=== PATIENT | female | born 1965 | race Caucasian/White ===

== ENCOUNTER 2017-11-16 17:29 | Emergency (ER) | payer MEDICARE, MEDICAID ==
[~2017-11-16] VITALS: Ht 154.9 cm; Wt 75.9 kg
[2017-11-16 17:33] VITALS: BP 156/84
== END 2017-11-16 19:49 | disposition home or self-care (01) ==
LOC: ER 17:29
DX: S70.02XA Contusion of left hip, initial encounter (principal); E11.9 Type 2 diabetes mellitus without complications; Z88.0 Allergy status to penicillin; Z90.710 Acquired absence of both cervix and uterus; W10.9XXA Fall (on) (from) unspecified stairs and steps, initial encounter; Y93.89 Activity, other specified; Y92.89 Other specified places as the place of occurrence of the external cause; Y99.9 Unspecified external cause status
CPT/HCPCS: 73502; 99284

== ENCOUNTER 2018-03-30 10:39 | Inpatient (IN) | payer MEDICARE, MEDICAID | END 2018-04-04 15:01 | disposition home or self-care (01) | LOC: ER 10:39 → SUR 3N 03-31 05:30 → ED HOLD 13:26 → SUR 3N 03-31 12:10 | PROC: 0J9C3ZX Drainage of Pelvic Region Subcutaneous Tissue and Fascia, Percutaneous Approach, Diagnostic (ICD-10-PCS; principal; ~2018-03-30) | DX: K57.20 Diverticulitis of large intestine with perforation and abscess without bleeding (principal); E87.1 Hypo-osmolality and hyponatremia; E11.9 Type 2 diabetes mellitus without complications ==

== ENCOUNTER 2018-04-17 09:32 | Emergency (ER) | payer MEDICARE, MEDICAID ==
[~2018-04-17] VITALS: Ht 154.9 cm; Wt 69.7 kg
[~2018-04-17 09:32] MED LIST: ACET500C5 PO; ARIP5TAB4 PO; ATEN25TA PO; BUSP15TA3 PO; CALC-965 PO; CLON-527 PO; DOCU-261 PO; GABA-532 PO; IBUP-1985 PO; LEVO750T46 PO; LISI10TA4 PO; LOVA20TA2 PO; MAGN400C PO; MYCOL15CR TOP; OMEP20CA10 PO; OXCA600T37 PO; SERT100T10 PO; ZIPR40CA14 PO; ZIPR80CA10 PO
[2018-04-17 09:34] VITALS: BP 119/77
--- NOTE | 2018-04-17 10:51 | NUR ---
cleaned patient's abrasion to right eyebrow. patient tolerated well.
[2018-04-20] MEDS ORDERED: WALKERFR (15:29)
== END 2018-04-17 11:11 | disposition home or self-care (01) ==
LOC: ER 09:33
DX: S00.11XA Contusion of right eyelid and periocular area, initial encounter (principal); E78.00 Pure hypercholesterolemia, unspecified; I10 Essential (primary) hypertension; E11.9 Type 2 diabetes mellitus without complications; N28.9 Disorder of kidney and ureter, unspecified; Z90.710 Acquired absence of both cervix and uterus; Z98.890 Other specified postprocedural states; Z88.0 Allergy status to penicillin; Z79.899 Other long term (current) drug therapy; W19.XXXA Unspecified fall, initial encounter; Y93.89 Activity, other specified; Y92.89 Other specified places as the place of occurrence of the external cause; Y99.8 Other external cause status
CPT/HCPCS: 99284

== ENCOUNTER → 2018-04-20 | Emergency (ER) | payer MEDICARE, MEDICAID ==
[~2018-04-20] VITALS: Ht 152.4 cm; Wt 68.2 kg
[~2018-04-20] MED LIST changes: +WALKERFR
[2018-04-20 13:44] VITALS: BP 109/77
== END | disposition home or self-care (01) ==
LOC: ER 13:34
DX: S93.492A Sprain of other ligament of left ankle, initial encounter (principal); S00.83XA Contusion of other part of head, initial encounter; S00.81XA Abrasion of other part of head, initial encounter; E78.00 Pure hypercholesterolemia, unspecified; I10 Essential (primary) hypertension; E11.9 Type 2 diabetes mellitus without complications; F41.9 Anxiety disorder, unspecified; F32.9 Major depressive disorder, single episode, unspecified; Z88.0 Allergy status to penicillin; Z79.899 Other long term (current) drug therapy; Z90.710 Acquired absence of both cervix and uterus; W01.198A Fall on same level from slipping, tripping and stumbling with subsequent striking against other object, initial encounter; Y93.89 Activity, other specified; Y92.89 Other specified places as the place of occurrence of the external cause; Y99.8 Other external cause status
CPT/HCPCS: 73610; 99284

== ENCOUNTER 2018-06-04 11:17 | Emergency (ER) | payer MEDICARE, MEDICAID ==
[~2018-06-04] VITALS: Ht 152.4 cm; Wt 65.8 kg
[2018-06-04] MEDS ORDERED: HYDR25SU32 RC (11:57)
[2018-06-04] MEDS ORDERED: hydrocortisone acetate 25mg rectal suppository RC PRN (12:00)
[2018-06-04 12:22] VITALS: BP 134/55
== END 2018-06-04 12:25 | disposition home or self-care (01) ==
LOC: ER 11:17
DX: K64.9 Unspecified hemorrhoids (principal); I10 Essential (primary) hypertension; E78.00 Pure hypercholesterolemia, unspecified; F17.200 Nicotine dependence, unspecified, uncomplicated; E11.9 Type 2 diabetes mellitus without complications; Z90.710 Acquired absence of both cervix and uterus; Z88.0 Allergy status to penicillin
CPT/HCPCS: 99284

== ENCOUNTER 2019-03-12 09:46 | Emergency (ER) | payer MEDICARE, MEDICAID ==
[~2019-03-12] VITALS: Ht 152.4 cm; Wt 65.0 kg
[~2019-03-12 09:46] MED LIST changes: +ARIP5TAB14 PO; -ARIP5TAB4 PO; +HYDR25SU32 RC; +OMEP-297 PO; -OMEP20CA10 PO
[2019-03-12] MEDS ORDERED: normal saline 1000ML IV soln IVB ONE (10:15)
[2019-03-12] MEDS ORDERED: ondansetron/PF 4mg/2ml inj IV ONE (10:15)
[2019-03-12] MEDS ORDERED: morphine 4 MG/ML inj SYRINge IV PRN (10:15)
--- NOTE | 2019-03-12 10:16 | NUR ---
PT'S CAREGIVER COMES INTO THE ROOM TO TALK TO THE PROVIDER.
--- NOTE | 2019-03-12 11:17 | NUR ---
PA INFORMED DIFFICULTY DRAWING BLOOD FROM PATIENT
[2019-03-12 11:53] LABS: BASOPHILS % (AUTO) 0.2 % (0-1); EOSINOPHILS % (AUTO) 0.1 % (0-6); HEMATOCRIT 26.8 % (35.0-45.0); HEMOGLOBIN 9.2 g/dl (12.0-16.0); LYMPHOCYTES # (AUTO) 0.6 X10'3 (1.1-4.8); LYMPHOCYTES % (AUTO) 8.2 % (21-51); MEAN CORPUSCULAR HEMOGLOBIN 31.8 PG (27.0-31.0); MEAN CORPUSCULAR HGB CONC 34.2 g/dL (33.0-36.5); MEAN CORPUSCULAR VOLUME 92.9 FL (78-98); MEAN PLATELET VOLUME 8.5 FL (7.4-10.4); MONOCYTES # (AUTO) 0.8 X10'3 (0-0.9); MONOCYTES % (AUTO) 10.4 % (2-12); NEUTROPHILS # (AUTO) 6.2 X10'3 (1.8-7.7); NEUTROPHILS % (AUTO) 81.1 % (42-75); PLATELET COUNT 130 X10'3 (140-440); RED BLOOD COUNT 2.88 X10'6 (4.20-5.60); RED CELL DISTRIBUTION WIDTH 14.9 % (11.5-14.5); WHITE BLOOD COUNT 7.6 X10'3 (4.5-11.0)
[2019-03-12 12:02] LABS: ALANINE AMINOTRANSFERASE 38 U/L (12-78); ALBUMIN 3.1 G/DL (3.4-5.0); ALBUMIN/GLOBULIN RATIO 0.6 (1.1-1.5); ALKALINE PHOSPHATASE 163 IU/L (46-116); ANION GAP 9 (8-16); ASPARTATE AMINO TRANSFERASE 87 U/L (10-37); BILIRUBIN,TOTAL 0.5 MG/DL (0.1-1.0); BLOOD UREA NITROGEN 46 MG/DL (7-18); BUN/CREATININE RATIO 23.6 (6.6-38.0); CALCIUM 9.4 MG/DL (8.5-10.1); CHLORIDE 99 MMOL/L (99-107); CREATININE 1.95 MG/DL (0.40-0.90); GLUCOSE 115 MG/DL (70-104); POTASSIUM 4.3 MMOL/L (3.5-5.1); SODIUM 137 MMOL/L (135-145); TOTAL CARBON DIOXIDE 28.8 MMOL/L (24-32); eGFR 27 ML/MIN
[2019-03-12] MEDS ORDERED: CIPR-230 PO (12:12)
[2019-03-12 12:15] VITALS: BP 101/49
--- NOTE | 2019-03-12 12:40 | NUR ---
PA AWARE NO URINE SENT, PATIENT REFUSED STRAIGHT CATH
[2019-03-23] MEDS ORDERED: ARIP10TA15 PO (15:38)
[2019-03-23] MEDS ORDERED: CLON-514 PO (15:42)
[2019-03-23] MEDS ORDERED: FERR324T8 PO (15:44)
[2019-03-23] MEDS ORDERED: ZIPR40CA2 PO (15:50)
[2019-03-23] MEDS ORDERED: ALLO100T PO (15:57)
[2019-03-23] MEDS ORDERED: LOPE-144 PO (16:00)
== END 2019-03-12 12:39 | disposition home or self-care (01) ==
LOC: ER 09:47
DX: K63.2 Fistula of intestine (principal); R10.30 Lower abdominal pain, unspecified; R19.7 Diarrhea, unspecified; E78.00 Pure hypercholesterolemia, unspecified; I10 Essential (primary) hypertension; E11.9 Type 2 diabetes mellitus without complications; Z90.710 Acquired absence of both cervix and uterus; Z88.0 Allergy status to penicillin; Z79.899 Other long term (current) drug therapy
CPT/HCPCS: 36415; 74176; 80053; 85025; 96361; 96374; 96375; 99284; J2270; J2405; J7030

== ENCOUNTER 2019-03-15 15:34 | Emergency (ER) | payer MEDICARE, MEDICAID ==
[~2019-03-15] VITALS: Ht 152.4 cm; Wt 67.3 kg
[~2019-03-15 15:34] MED LIST changes: +CIPR-230 PO
[2019-03-15 16:00] VITALS: BP 91/76
== END 2019-03-15 16:50 | disposition left against medical advice (07) ==
LOC: ER 15:35
DX: K62.5 Hemorrhage of anus and rectum (principal); Z53.21 Procedure and treatment not carried out due to patient leaving prior to being seen by health care provider

== ENCOUNTER 2019-04-10 09:52 | Observation (INO) | payer MEDICARE, MEDICAID ==
[~2019-04-10] VITALS: Ht 160 cm; Wt 67.3 kg
[~2019-04-10 09:52] MED LIST changes: +ALLO100T PO; +ARIP10TA15 PO; -CIPR-230 PO; +CLON-514 PO; -DOCU-261 PO; +FERR324T8 PO; -LEVO750T46 PO; +LOPE-144 PO; -MAGN400C PO; -MYCOL15CR TOP; -OMEP-297 PO; +OMEP20CA15 PO; -OXCA600T37 PO; -WALKERFR; -ZIPR40CA14 PO; +ZIPR40CA2 PO
[2019-04-10] MEDS ORDERED: normal saline 1000ML IV soln IVB ONE (10:20)
[2019-04-10 10:52] LABS: BASOPHILS % (AUTO) 0.4 % (0-1); EOSINOPHILS # (AUTO) 0.2 X10'3 (0-0.9); EOSINOPHILS % (AUTO) 2.1 % (0-6); HEMATOCRIT 24.5 % (35.0-45.0); HEMOGLOBIN 8.5 g/dl (12.0-16.0); LYMPHOCYTES # (AUTO) 1.1 X10'3 (1.1-4.8); LYMPHOCYTES % (AUTO) 10.7 % (21-51); MEAN CORPUSCULAR HEMOGLOBIN 31.5 PG (27.0-31.0); MEAN CORPUSCULAR HGB CONC 34.6 g/dL (33.0-36.5); MEAN PLATELET VOLUME 8.4 FL (7.4-10.4); MONOCYTES # (AUTO) 0.7 X10'3 (0-0.9); MONOCYTES % (AUTO) 6.7 % (2-12); NEUTROPHILS % (AUTO) 80.1 % (42-75); PLATELET COUNT 251 X10'3 (140-440); RED BLOOD COUNT 2.69 X10'6 (4.20-5.60); RED CELL DISTRIBUTION WIDTH 15.1 % (11.5-14.5)
[2019-04-10 11:28] LABS: GLUCOSE 178 MG/DL (70-104); TOTAL CARBON DIOXIDE 23.6 MMOL/L (24-32)
[2019-04-10 11:29] LABS: ALANINE AMINOTRANSFERASE 38 U/L (12-78); ALBUMIN 2.7 G/DL (3.4-5.0); ALBUMIN/GLOBULIN RATIO 0.7 (1.1-1.5); ALKALINE PHOSPHATASE 82 IU/L (46-116); ANION GAP 9 (8-16); ASPARTATE AMINO TRANSFERASE 42 U/L (10-37); BILIRUBIN,TOTAL 0.2 MG/DL (0.1-1.0); BLOOD UREA NITROGEN 47 MG/DL (7-18); BUN/CREATININE RATIO 22.7 (6.6-38.0); CALCIUM 8.8 MG/DL (8.5-10.1); CHLORIDE 102 MMOL/L (99-107); CREATININE 2.07 MG/DL (0.40-0.90); POTASSIUM 4.9 MMOL/L (3.5-5.1); SODIUM 135 MMOL/L (135-145); TOTAL PROTEIN 6.8 G/DL (6.4-8.2); eGFR 25 ML/MIN
[2019-04-10 11:33] LABS: CLARITY,URINE SLIGHTLY CLOUDY (Clear); COLOR,URINE STRAW (Yellow); GLUCOSE, URINE NEGATIVE (Neg); KETONES,URINE NEGATIVE (Neg); LEUKOCYTE ESTERASE ,URINE LARGE (Neg); NITRITES, URINE NEGATIVE (Neg); OCCULT BLOOD,URINE MODERATE (Neg); PH,URINE 7.5 (4.8-8.0); PROTEIN,URINE 30 mg/dl (Neg); UROBILINOGEN,URINE 0.2 E.U/dL (0.2-1.0)
[2019-04-10 11:36] LABS: UA COLLECTION TYPE VOIDED
[2019-04-10 11:43] LABS: WBC,URINE 50-100 /HPF (0-4)
[2019-04-10 11:44] LABS: BACTERIA,URINE 3+ /HPF (Neg); MUCUS STRANDS NONE SEEN /LPF (Neg); SQUAMOUS EPITHELIAL CELL,UR MODERATE /LPF (FEW); WBC CLUMPS,URINE FEW /HPF (NEGATIVE); YEAST FEW /HPF (NEGATIVE)
[2019-04-10] MEDS ORDERED: CefTRIAXone 2gm/D5W 50ml 50 ML IV ONE (11:45)
[2019-04-10] MEDS ORDERED: NICO-731 TOP (12:57)
[2019-04-10] MEDS ORDERED: MYC15CR TOP (12:57)
--- NOTE | 2019-04-10 13:15 | NUR ---
Asked to consult on pt. Pt has just been dc'd from here last tuesday to her normal residence (residential long term) and did well day of dc and tuesday but started declining after that. The home feels that pt would benefit from short term rehab. Pt had been accepted at [facility] however they felt she would recover quicker in her own setting so she was dc'd home instead. I called [facility] and spoke w/ Dg and DEZ Pearson. They have some concerns over pt's psych meds so I faxed them the ER notes which includes a current med list. I confirmed w/ the caregiver at bedside that pt sees Carol Park MD for her medical needs and Dr. Jeffries for her psych care/meds. Per caregiver pt is seen [id number] w/ Dr. Mauricio. Shortly after that I was contacted by the ER that pt is actually in acute renal failure and will be admitted for some fluids. She should be stable for tx to [facility] in a day or so. Notifed [facility] of pt's admit, they will continue to follow pt. Continue to monitor.
[2019-04-10] MEDS ORDERED: mag hydrox/Alum hydrox/simeth 30ml oral suspension PO PRN (13:30)
[2019-04-10] MEDS ORDERED: ondansetron/PF 4mg/2ml inj IV PRN (13:30)
[2019-04-10] MEDS ORDERED: acetaminophen 325mg tablet PO PRN (13:30)
[2019-04-10] MEDS ORDERED: magnesium hydroxide 30ml (MOM) UD suspension PO PRN (13:30)
--- NOTE | 2019-04-10 16:19 | NUR ---
Patient given juice and heart health diet ordered
[2019-04-10] MEDS: normal saline 1000ml 1,000 ML IV SCH (16:23)
[2019-04-10] MEDS ORDERED: non-formulary drug (Acetaminophen (Mapap) 1 CAP) PO PRN (16:25)
[2019-04-10] MEDS ORDERED: loperamide 2mg capsule PO PRN (16:45)
[2019-04-10] MEDS: ziprasidone 20mg capsule PO SCH (17:55)
[2019-04-10] MEDS: calcium carbonate/vitamin D3 tablet PO SCH ×2 (17:55→21:30)
[2019-04-10 19:35] VITALS: BP 157/91
--- NOTE | 2019-04-10 19:35 | NUR ---
PATIENT ADMITTED TO ROOM 353 FROM ER FOR TAY AND UTI. PLACED COMFORTABLE IN BED. VITAL SIGNS TAKEN AND RECORDED.
[2019-04-10] MEDS ORDERED: FERROUS FUMARATE PO SCH (20:00)
[2019-04-10] MEDS ORDERED: aripiprazole 5mg tablet PO SCH (21:00)
[2019-04-10] MEDS ORDERED: ziprasidone 20mg capsule PO SCH (21:00)
[2019-04-10] MEDS: busPIRone 15mg tablet PO SCH (21:30)
[2019-04-10] MEDS: gabapentin 300mg capsule PO SCH (21:30)
[2019-04-10] MEDS: heparin, porcine 5000 units/ml vial SQ SCH (21:40)
[2019-04-10] MEDS: NYSTATIN CREAM - 30GM TUBE TP SCH (21:40)
[2019-04-11] VITALS: BP 100/55
[2019-04-11] MEDS: normal saline 1000ml 1,000 ML IV SCH ×2 (01:32→11:59)
[2019-04-11 06:23] LABS: BASOPHILS % (AUTO) 0.8 % (0-1); EOSINOPHILS # (AUTO) 0.2 X10'3 (0-0.9); EOSINOPHILS % (AUTO) 4.3 % (0-6); HEMATOCRIT 25.8 % (35.0-45.0); HEMOGLOBIN 8.8 g/dl (12.0-16.0); LYMPHOCYTES # (AUTO) 0.9 X10'3 (1.1-4.8); LYMPHOCYTES % (AUTO) 17.2 % (21-51); MEAN CORPUSCULAR HEMOGLOBIN 30.9 PG (27.0-31.0); MEAN CORPUSCULAR HGB CONC 34.1 g/dL (33.0-36.5); MEAN CORPUSCULAR VOLUME 90.5 FL (78-98); MEAN PLATELET VOLUME 8.3 FL (7.4-10.4); MONOCYTES # (AUTO) 0.4 X10'3 (0-0.9); MONOCYTES % (AUTO) 7.4 % (2-12); NEUTROPHILS # (AUTO) 3.6 X10'3 (1.8-7.7); NEUTROPHILS % (AUTO) 70.3 % (42-75); PLATELET COUNT 211 X10'3 (140-440); RED BLOOD COUNT 2.85 X10'6 (4.20-5.60); WHITE BLOOD COUNT 5.1 X10'3 (4.5-11.0)
--- NOTE | 2019-04-11 06:29 | NUR ---
Problems reprioritized. Patient report given, questions answered & plan of care reviewed with SEKOU RN.
[2019-04-11 06:53] LABS: ALBUMIN 2.3 G/DL (3.4-5.0); ANION GAP 9 (8-16); BLOOD UREA NITROGEN 21 MG/DL (7-18); BUN/CREATININE RATIO 19.8 (6.6-38.0); CALCIUM 8.6 MG/DL (8.5-10.1); CHLORIDE 109 MMOL/L (99-107); CREATININE 1.06 MG/DL (0.40-0.90); GLUCOSE 99 MG/DL (70-104); POTASSIUM 4.4 MMOL/L (3.5-5.1); SODIUM 141 MMOL/L (135-145); TOTAL CARBON DIOXIDE 22.7 MMOL/L (24-32); eGFR 54 ML/MIN
--- NOTE | 2019-04-11 07:09 | NUR ---
Patient in room [facility] 353. I have received report from Doris George RN and had the opportunity to ask questions and assume patient care.
[2019-04-11] MEDS ORDERED: pantoprazole 40mg Tablet.DR PO SCH (07:30)
[2019-04-11 07:48] VITALS: BP 122/61
[2019-04-11] MEDS: calcium carbonate/vitamin D3 tablet PO SCH (07:59)
[2019-04-11] MEDS: ziprasidone 20mg capsule PO SCH (07:59)
[2019-04-11] MEDS: gabapentin 300mg capsule PO SCH ×2 (07:59→12:35)
[2019-04-11] MEDS: ARIPIPRAZOLE 10 MG TABLET PO SCH ×2 (07:59→12:35)
[2019-04-11] MEDS: busPIRone 15mg tablet PO SCH (08:00)
[2019-04-11] MEDS ORDERED: atorvastatin 10mg tablet PO SCH (08:00)
[2019-04-11] MEDS ORDERED: allopurinol 100mg tablet PO SCH (08:00)
[2019-04-11] MEDS ORDERED: nicotine 14mg patch - 24hr TD SCH (08:00)
[2019-04-11] MEDS: heparin, porcine 5000 units/ml vial SQ SCH (08:00)
[2019-04-11] MEDS ORDERED: atenolol 25mg tablet PO SCH (08:00)
[2019-04-11] MEDS ORDERED: sertraline 50mg tablet PO SCH (08:00)
[2019-04-11] MEDS: NYSTATIN CREAM - 30GM TUBE TP SCH (08:07)
[2019-04-11 11:39] VITALS: BP 110/64
--- NOTE | 2019-04-11 14:08 | NUR ---
[facility] All questions answered. Patient left for [place] via [employer] with all of her belongings.
== END 2019-04-11 13:55 ==
LOC: ER 09:53 → ED HOLD 13:28 → SUR 3N 19:32
PROVIDERS: ADMIT Family Medicine; ATTEND Family Medicine
DX: N17.0 Acute kidney failure with tubular necrosis (principal); N39.0 Urinary tract infection, site not specified; F41.9 Anxiety disorder, unspecified; F32.9 Major depressive disorder, single episode, unspecified; E11.9 Type 2 diabetes mellitus without complications; E78.00 Pure hypercholesterolemia, unspecified; I10 Essential (primary) hypertension; Q93.82 Williams syndrome; F17.200 Nicotine dependence, unspecified, uncomplicated; Z90.710 Acquired absence of both cervix and uterus; Z90.49 Acquired absence of other specified parts of digestive tract; Z96.0 Presence of urogenital implants; Z79.899 Other long term (current) drug therapy; Z88.0 Allergy status to penicillin
CPT/HCPCS: 36415; 71045; 80048; 80053; 81001; 82948; 85025; 87077; 87081; 87088; 87186; 87502; 87503; 93005; 96365; 97161; 97530; 99284; G0378; J0696; J1644; J7030

== ENCOUNTER 2019-05-03 16:07 | Inpatient (IN) | payer MEDICARE, MEDICAID ==
[~2019-05-03] VITALS: Ht 160 cm; Wt 67.0 kg
[~2019-05-03 16:07] MED LIST changes: -HYDR25SU32 RC; -IBUP-1985 PO; +MYC15CR TOP; +NICO-731 TOP
[2019-05-03] MEDS ORDERED: normal saline 1000ML IV soln IV ONE (16:30)
[2019-05-03 17:05] LABS: BASOPHILS % (AUTO) 0.2 % (0-1); EOSINOPHILS % (AUTO) 0.2 % (0-6); HEMATOCRIT 23.3 % (35.0-45.0); HEMOGLOBIN 7.8 g/dl (12.0-16.0); LYMPHOCYTES # (AUTO) 0.4 X10'3 (1.1-4.8); LYMPHOCYTES % (AUTO) 6.8 % (21-51); MEAN CORPUSCULAR HGB CONC 33.3 g/dL (33.0-36.5); MEAN CORPUSCULAR VOLUME 90.3 FL (78-98); MEAN PLATELET VOLUME 7.4 FL (7.4-10.4); MONOCYTES # (AUTO) 0.4 X10'3 (0-0.9); MONOCYTES % (AUTO) 6.1 % (2-12); NEUTROPHILS # (AUTO) 5.6 X10'3 (1.8-7.7); NEUTROPHILS % (AUTO) 86.7 % (42-75); PLATELET COUNT 217 X10'3 (140-440); RED BLOOD COUNT 2.58 X10'6 (4.20-5.60); RED CELL DISTRIBUTION WIDTH 16.4 % (11.5-14.5); WHITE BLOOD COUNT 6.4 X10'3 (4.5-11.0)
[2019-05-03 17:17] LABS: PARTIAL THROMBOPLASTIN TIME 28 SECONDS (22-32)
[2019-05-03 17:24] LABS: LACTIC SEPSIS 0.8 MMOL/L (0.4-2.0)
[2019-05-03 17:33] LABS: ALBUMIN/GLOBULIN RATIO 0.5 (1.1-1.5); ALKALINE PHOSPHATASE 91 IU/L (46-116); ANION GAP 9 (8-16); ASPARTATE AMINO TRANSFERASE 14 U/L (10-37); BILIRUBIN,TOTAL 0.3 MG/DL (0.1-1.0); BLOOD UREA NITROGEN 45 MG/DL (7-18); BUN/CREATININE RATIO 18.6 (6.6-38.0); CHLORIDE 103 MMOL/L (99-107); CREATININE 2.42 MG/DL (0.40-0.90); GLUCOSE 84 MG/DL (70-104); POTASSIUM 4.5 MMOL/L (3.5-5.1); SODIUM 134 MMOL/L (135-145); TOTAL CARBON DIOXIDE 21.8 MMOL/L (24-32); TOTAL PROTEIN 5.9 G/DL (6.4-8.2); eGFR 21 ML/MIN
[2019-05-03 17:36] LABS: ALANINE AMINOTRANSFERASE < 6 U/L (12-78)
[2019-05-03 17:41] LABS: LIPASE < 50 U/L (73-393); MAGNESIUM 1.4 MG/DL (1.5-2.4)
[2019-05-03] MEDS: magnesium 2GM in 50ml NS 50 ML IV ONE ×2 (17:50→18:44)
[2019-05-03] MEDS ORDERED: normal saline 1000ml 1,000 ML IV ONE (17:55)
--- NOTE | 2019-05-03 18:32 | NUR ---
INTO CLEAN UP PT. PT FOUND ON THE BED HICKEY. RING NOTED TO BUTT AND LEGS FROM HICKEY. EUSEBIO TOLENTINO NOTIFIED. JOSÉ DUMAS AT DURING CLEANING PT UP WAS ABLE TO VIEW THE SKIN
--- NOTE | 2019-05-03 18:59 | NUR ---
CLEANED PT AFTER SMALL BM. PT GIVEN BLANKET AND LYING COMFORTABLY IN BED
[2019-05-03] MEDS ORDERED: NORepinephrine 8mg/ 250ml NS 250 ML IV PRN (19:41)
--- NOTE | 2019-05-03 19:45 | NUR ---
NOTIFIED PATEE OF PT LOW BP 69/35 ON RIGHT ARM. PATEE AT BEDSIDE, ORDERS TO FOLLOW
--- NOTE | 2019-05-03 19:45 | NUR ---
SPOKE TO JA HASSAN THE PATIETN 'S FATHER AND LEGALLY RECOGNIZED DECISION MAKER. PRE ANNIKA, HE WANTS THE FULL TREATMENT TO OCCUR WITH HIS DAUGHTER. CURRENTLY HIS DAUGHTER HAS REFUSED, CENTRAL LINE AND BLOOD INFUSION.
--- NOTE | 2019-05-03 19:50 | NUR ---
DOCTOR YEAGER ADVISED TO GIVE BLOOD AT THIS TIME PER JA HASSAN'S REQUEST.
[2019-05-03] MEDS ORDERED: iohexol 350MG/ML 100ml bottle IV ONE (19:55)
[2019-05-03] MEDS ORDERED: MESSAGE TO NURSING PO SCH (20:00)
--- NOTE | 2019-05-03 20:04 | NUR ---
CURRENTLY WAITING FOR 2 PROVIDER SIGNATURE ON CONSENT DUE TO REFUSED STATUS
[2019-05-03 20:31] VITALS: BP 101/67
[2019-05-03 20:46] VITALS: BP 99/60
[2019-05-03 20:59] VITALS: BP 100/62
[2019-05-03] MEDS ORDERED: OLANZapine 2.5MG tablet PO SCH (21:00)
[2019-05-03] MEDS ORDERED: OLANZapine 2.5MG tablet PO ONE (21:00)
[2019-05-03 21:42] VITALS: BP 109/59
[2019-05-03] MEDS ORDERED: normal saline 1000ML IV soln IVB ONE ×2 (21:45)
[2019-05-03] MEDS ORDERED: magnesium hydroxide 30ml (MOM) UD suspension PO PRN (22:05)
[2019-05-03] MEDS ORDERED: magnesium 2GM in 50ml NS 50 ML IV PRN (22:05)
[2019-05-03] MEDS ORDERED: ondansetron/PF 4mg/2ml inj IV PRN (22:05)
[2019-05-03] MEDS ORDERED: potassium Cl 20 mEq SR tablet PO PRN (22:05)
[2019-05-03] MEDS ORDERED: acetaminophen 325mg tablet PO PRN (22:05)
[2019-05-03] MEDS ORDERED: magnesium 4gm in 100ml NS 100 ML IV PRN (22:05)
[2019-05-03] MEDS ORDERED: mag hydrox/Alum hydrox/simeth 30ml oral suspension PO PRN (22:05)
[2019-05-03] MEDS ORDERED: potassium CL 10mEq/100ml bag 100 ML IV PRN ×2 (22:05)
[2019-05-03] MEDS: normal saline 1000ml 1,000 ML IV SCH (23:38)
[2019-05-04] MEDS ORDERED: loperamide 2mg capsule PO PRN (00:25)
[2019-05-04] MEDS ORDERED: non-formulary drug (Acetaminophen (Mapap) 1 CAP) PO PRN (00:25)
--- NOTE | 2019-05-04 00:45 | NUR ---
IN ROOM TO ASSIST PRIMARY RN WITH CLEANING UP PT AFTER STOOL INCONTINENCE. IT WAS NOTED THAT THE STOOL WAS EXITING THRU THE VAGINA. 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 THE PATIENT WAS CLEANED AND A TAMPON WAS INSERTED INTO THE VAGINA TO TEMPORARILY BLOCK THE STOOL FROM CONTAMINATING THE URETHREAL OPENING. THE AREA WAS THEN CLEANED FOR STERILE CATHETHER INSERTION. ONCE THE PACK CATH WAS INSERTED THE TAMPON WAS REMOVED AND PT WAS AGAIN CLEANED UP.
--- NOTE | 2019-05-04 01:16 | NUR ---
pt placed on hospital bed for comfort
--- NOTE | 2019-05-04 03:53 | NUR ---
Patient brought to the floor by ER on a hospital bed, patient transferred to PCU bed. Tele monitor applied and VS obtained. 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 Notified by TRANSPORTATION MODELER that patient is conserved by her dad - will have day shift attempt to contact in the AM. Patient given call light and oriented to room. No apparent s/s of distress. NS infusing per MD order. Will continue to monitor
[2019-05-04 04:30] VITALS: BP 123/60
[2019-05-04] MEDS: tobramycin/dexamethasone ophthalmic suspension RIGHTEYE SCH ×4 (04:44→19:52)
[2019-05-04 06:00] VITALS: BP 121/43
--- NOTE | 2019-05-04 06:00 | NUR ---
Patient in room PCU 3028. I have received report from Andrew DUMAS and had the opportunity to ask questions and assume patient care.
[2019-05-04 06:02] LABS: BASOPHILS % (AUTO) 0.3 % (0-1); EOSINOPHILS % (AUTO) 0.7 % (0-6); HEMATOCRIT 28.8 % (35.0-45.0); HEMOGLOBIN 9.6 g/dl (12.0-16.0); LYMPHOCYTES # (AUTO) 0.6 X10'3 (1.1-4.8); LYMPHOCYTES % (AUTO) 13.6 % (21-51); MEAN CORPUSCULAR HEMOGLOBIN 30.5 PG (27.0-31.0); MEAN CORPUSCULAR HGB CONC 33.5 g/dL (33.0-36.5); MEAN CORPUSCULAR VOLUME 91.1 FL (78-98); MEAN PLATELET VOLUME 7.8 FL (7.4-10.4); MONOCYTES # (AUTO) 0.4 X10'3 (0-0.9); MONOCYTES % (AUTO) 9.4 % (2-12); NEUTROPHILS # (AUTO) 3.3 X10'3 (1.8-7.7); PLATELET COUNT 199 X10'3 (140-440); RED BLOOD COUNT 3.16 X10'6 (4.20-5.60); RED CELL DISTRIBUTION WIDTH 15.5 % (11.5-14.5); WHITE BLOOD COUNT 4.3 X10'3 (4.5-11.0)
--- NOTE | 2019-05-04 06:11 | NUR ---
Problems reprioritized. Patient report given, questions answered & plan of care reviewed with Jane DUMAS.
[2019-05-04 06:25] LABS: ALBUMIN 1.9 G/DL (3.4-5.0); ANION GAP 11 (8-16); BLOOD UREA NITROGEN 29 MG/DL (7-18); BUN/CREATININE RATIO 19.2 (6.6-38.0); CALCIUM 7.5 MG/DL (8.5-10.1); CHLORIDE 108 MMOL/L (99-107); CREATININE 1.51 MG/DL (0.40-0.90); GLUCOSE 74 MG/DL (70-104); MAGNESIUM 1.2 MG/DL (1.5-2.4); SODIUM 136 MMOL/L (135-145); TOTAL CARBON DIOXIDE 17.2 MMOL/L (24-32); eGFR 36 ML/MIN
[2019-05-04 06:30] LABS: POTASSIUM 4.6 MMOL/L (3.5-5.1)
[2019-05-04] MEDS: ARIPIPRAZOLE 10 MG TABLET PO SCH ×3 (07:30→20:24)
[2019-05-04] MEDS: allopurinol 100mg tablet PO SCH (07:40)
[2019-05-04] MEDS: sertraline 50mg tablet PO SCH (07:40)
[2019-05-04] MEDS: busPIRone 15mg tablet PO SCH ×2 (07:40→19:47)
[2019-05-04] MEDS: calcium carbonate/vitamin D3 tablet PO SCH ×2 (07:41→19:47)
[2019-05-04] MEDS: gabapentin 300mg capsule PO SCH ×3 (07:41→20:22)
[2019-05-04] MEDS: clonazePAM 0.5mg tablet PO SCH (07:41)
[2019-05-04] MEDS: atorvastatin 10mg tablet PO SCH ×2 (07:44→19:48)
[2019-05-04] MEDS ORDERED: enoxaparin 40mg/0.4ml syringe SQ SCH (08:00)
[2019-05-04] MEDS ORDERED: pantoprazole 40mg Tablet.DR PO SCH (08:00)
[2019-05-04] MEDS: nicotine 14mg patch - 24hr TD SCH (08:00)
[2019-05-04] MEDS: K and/or MAG REPLACEMENT MC SCH ×2 (08:00→20:00)
[2019-05-04] MEDS ORDERED: ferrous gluconate 324mg tablet PO SCH (08:00)
[2019-05-04] MEDS: NYSTATIN CREAM - 30GM TUBE TP SCH ×2 (09:52→19:53)
[2019-05-04] MEDS: ziprasidone 20mg capsule PO SCH ×3 (09:53→20:24)
[2019-05-04] MEDS: ferrous gluconate 324mg tablet PO SCH ×2 (09:54→19:46)
[2019-05-04] MEDS: pantoprazole 40mg Tablet.DR PO SCH (09:54)
[2019-05-04] MEDS: normal saline 1000ml 1,000 ML IV SCH ×2 (10:00→18:03)
[2019-05-04 10:34] LABS: PLATELET ESTIMATE NORMAL; TOTAL CELLS COUNTED 100
[2019-05-04 10:35] LABS: BURR CELLS 1+
[2019-05-04 11:00] VITALS: BP 112/38
[2019-05-04] MEDS: magnesium Cl slow-release 64mg tablet PO PRN ×2 (13:27→19:51)
[2019-05-04 15:00] VITALS: BP 139/29
--- NOTE | 2019-05-04 15:43 | NUR ---
Spoke with bedside RN, reports patient is edentulous, nursing spoke with patient and offered to alter texture of meals and patient declined however was on a soft to chew diet last admission, d/w dietary to send soft to chew foods. Addendum: 05/04/19 at [address] Amended: Links added.
--- NOTE | 2019-05-04 18:48 | NUR ---
Patient in room PCU 3028. I have received report from Jane DUMAS and had the opportunity to ask questions and assume patient care.
[2019-05-04 19:00] VITALS: BP 116/63
--- NOTE | 2019-05-04 19:14 | NUR ---
Problems reprioritized. Patient report given, questions answered & plan of care reviewed with Joaquin RN.
[2019-05-04] MEDS: clonazePAM 1mg tablet PO SCH (20:22)
[2019-05-04 23:00] VITALS: BP 97/40
[2019-05-05] MEDS: tobramycin/dexamethasone ophthalmic suspension RIGHTEYE SCH ×4 (01:04→20:00)
--- NOTE | 2019-05-05 02:45 | NUR ---
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 Requesting rectal tube if it is not contraindicative. [phone] Joaquin DUMAS Addendum: 05/05/19 at 0251 by Alli Nielson RN Doctor okayed order for rectal tube
[2019-05-05 03:00] VITALS: BP 114/43
[2019-05-05] MEDS: normal saline 1000ml 1,000 ML IV SCH ×2 (03:55→14:03)
[2019-05-05] MEDS: acetaminophen 325mg tablet PO PRN (04:09)
[2019-05-05 05:50] LABS: BASOPHILS % (AUTO) 0.2 % (0-1); EOSINOPHILS % (AUTO) 0.5 % (0-6); HEMATOCRIT 26.4 % (35.0-45.0); HEMOGLOBIN 8.9 g/dl (12.0-16.0); LYMPHOCYTES # (AUTO) 0.6 X10'3 (1.1-4.8); LYMPHOCYTES % (AUTO) 14.6 % (21-51); MEAN CORPUSCULAR HGB CONC 33.8 g/dL (33.0-36.5); MEAN CORPUSCULAR VOLUME 88.8 FL (78-98); MEAN PLATELET VOLUME 7.6 FL (7.4-10.4); MONOCYTES # (AUTO) 0.4 X10'3 (0-0.9); MONOCYTES % (AUTO) 10.5 % (2-12); NEUTROPHILS % (AUTO) 74.2 % (42-75); PLATELET COUNT 192 X10'3 (140-440); RED BLOOD COUNT 2.97 X10'6 (4.20-5.60); RED CELL DISTRIBUTION WIDTH 16.2 % (11.5-14.5)
[2019-05-05 06:00] VITALS: BP 107/32
--- NOTE | 2019-05-05 06:01 | NUR ---
Problems reprioritized. Patient report given, questions answered & plan of care reviewed with Jane DUMAS.
[2019-05-05 06:18] LABS: ALBUMIN 1.8 G/DL (3.4-5.0); ANION GAP 10 (8-16); BLOOD UREA NITROGEN 15 MG/DL (7-18); BUN/CREATININE RATIO 14.4 (6.6-38.0); CHLORIDE 108 MMOL/L (99-107); CREATININE 1.04 MG/DL (0.40-0.90); GLUCOSE 78 MG/DL (70-104); MAGNESIUM 1.2 MG/DL (1.5-2.4); POTASSIUM 3.7 MMOL/L (3.5-5.1); SODIUM 137 MMOL/L (135-145); eGFR 56 ML/MIN
--- NOTE | 2019-05-05 06:31 | NUR ---
Patient in room PCU 3028. I have received report from Joaquin DUMAS and had the opportunity to ask questions and assume patient care.
[2019-05-05] MEDS: ziprasidone 20mg capsule PO SCH ×3 (07:30→20:22)
[2019-05-05] MEDS: ARIPIPRAZOLE 10 MG TABLET PO SCH ×3 (07:30→20:22)
[2019-05-05] MEDS: pantoprazole 40mg Tablet.DR PO SCH (08:00)
[2019-05-05] MEDS: sertraline 50mg tablet PO SCH (08:00)
[2019-05-05] MEDS: gabapentin 300mg capsule PO SCH ×3 (08:00→20:23)
[2019-05-05] MEDS: nicotine 14mg patch - 24hr TD SCH (08:00)
[2019-05-05] MEDS: calcium carbonate/vitamin D3 tablet PO SCH ×2 (08:00→20:21)
[2019-05-05] MEDS: clonazePAM 0.5mg tablet PO SCH (08:00)
[2019-05-05] MEDS: atorvastatin 10mg tablet PO SCH ×2 (08:00→20:22)
[2019-05-05] MEDS: enoxaparin 40mg/0.4ml syringe SQ SCH (08:00)
[2019-05-05] MEDS: K and/or MAG REPLACEMENT MC SCH ×2 (08:00→20:00)
[2019-05-05] MEDS: allopurinol 100mg tablet PO SCH (08:00)
[2019-05-05] MEDS: ferrous gluconate 324mg tablet PO SCH ×2 (08:00→20:22)
[2019-05-05] MEDS: busPIRone 15mg tablet PO SCH ×2 (08:00→20:21)
[2019-05-05] MEDS: NYSTATIN CREAM - 30GM TUBE TP SCH ×2 (08:00→20:23)
[2019-05-05 11:00] VITALS: BP 121/54
--- NOTE | 2019-05-05 13:33 | NUR ---
PAGER ID: [phone] MESSAGE: [id number] Alicia Braga in the 140s. No c/o chest pain. Has been very lethargic this morning. More awake now. Lynn Kelsea [phone]
[2019-05-05] MEDS: metoprolol tartrate 12.5mg (1/2 tablet) PO SCH ×2 (14:18→20:23)
[2019-05-05 15:00] VITALS: BP 118/70
--- NOTE | 2019-05-05 15:56 | NUR ---
PAGER ID: [phone] MESSAGE: [id number] Alicia Braga Positive for MRSA in the nares. Joseph Bailey [phone]
--- NOTE | 2019-05-05 17:33 | NUR ---
PAGER ID: [phone] MESSAGE: [id number] Alicia Braga Converted back to Sinus Rhythm. Yay! Just FYI. Bailey [phone]
--- NOTE | 2019-05-05 18:38 | NUR ---
Problems reprioritized. Patient report given, questions answered & plan of care reviewed with Silvino DUMAS.
[2019-05-05 19:00] VITALS: BP 125/75
[2019-05-05] MEDS: clonazePAM 1mg tablet PO SCH (20:23)
--- NOTE | 2019-05-05 21:55 | NUR ---
Patient in room PCU 3028. I have received report from ALESIA Dubois and had the opportunity to ask questions and assume patient care.
[2019-05-05 22:10] VITALS: BP 127/57
--- NOTE | 2019-05-05 22:12 | NUR ---
pt arrived from [facility],
[2019-05-06] VITALS: BP 105/43
[2019-05-06] MEDS: tobramycin/dexamethasone ophthalmic suspension RIGHTEYE SCH ×4 (02:00→20:00)
[2019-05-06] MEDS: magnesium Cl slow-release 64mg tablet PO PRN ×3 (02:37→21:04)
[2019-05-06] MEDS: acetaminophen 325mg tablet PO PRN (02:37)
[2019-05-06] MEDS: normal saline 1000ml 1,000 ML IV SCH ×3 (02:51→20:59)
[2019-05-06] MEDS ORDERED: ipratropium/albuterol 3ml nebule ONE (02:55)
[2019-05-06 06:22] LABS: BASOPHILS % (AUTO) 0.3 % (0-1); HEMATOCRIT 26.5 % (35.0-45.0); HEMOGLOBIN 8.9 g/dl (12.0-16.0); LYMPHOCYTES # (AUTO) 0.6 X10'3 (1.1-4.8); LYMPHOCYTES % (AUTO) 15.3 % (21-51); MEAN CORPUSCULAR HEMOGLOBIN 29.8 PG (27.0-31.0); MEAN CORPUSCULAR HGB CONC 33.6 g/dL (33.0-36.5); MEAN CORPUSCULAR VOLUME 88.8 FL (78-98); MEAN PLATELET VOLUME 7.6 FL (7.4-10.4); MONOCYTES # (AUTO) 0.3 X10'3 (0-0.9); MONOCYTES % (AUTO) 8.9 % (2-12); NEUTROPHILS # (AUTO) 2.8 X10'3 (1.8-7.7); NEUTROPHILS % (AUTO) 74.5 % (42-75); PLATELET COUNT 194 X10'3 (140-440); RED BLOOD COUNT 2.99 X10'6 (4.20-5.60); RED CELL DISTRIBUTION WIDTH 15.7 % (11.5-14.5); WHITE BLOOD COUNT 3.8 X10'3 (4.5-11.0)
--- NOTE | 2019-05-06 06:24 | NUR ---
Problems reprioritized. Patient report given, questions answered & plan of care reviewed with ALESIA SILVERIO. Addendum: 05/06/19 at 0624 by Mckenzie Brasher RN Amended: Links added.
--- NOTE | 2019-05-06 06:28 | NUR ---
Patient in room [facility] 345. I have received report from ALESIA Jordan and had the opportunity to ask questions and assume patient care.
[2019-05-06 06:32] LABS: ALBUMIN 1.7 G/DL (3.4-5.0); ANION GAP 11 (8-16); BLOOD UREA NITROGEN 9 MG/DL (7-18); CALCIUM 8.1 MG/DL (8.5-10.1); CHLORIDE 110 MMOL/L (99-107); GLUCOSE 102 MG/DL (70-104); MAGNESIUM 1.3 MG/DL (1.5-2.4); POTASSIUM 3.4 MMOL/L (3.5-5.1); SODIUM 139 MMOL/L (135-145); TOTAL CARBON DIOXIDE 18.3 MMOL/L (24-32); eGFR 66 ML/MIN
[2019-05-06 07:00] VITALS: BP 125/50
[2019-05-06] MEDS: ziprasidone 20mg capsule PO SCH ×3 (07:17→21:17)
[2019-05-06] MEDS: ARIPIPRAZOLE 10 MG TABLET PO SCH ×3 (07:17→21:04)
[2019-05-06] MEDS: busPIRone 15mg tablet PO SCH ×2 (07:18→21:05)
[2019-05-06] MEDS: potassium Cl 20 mEq SR tablet PO PRN ×3 (07:18→16:46)
[2019-05-06] MEDS: clonazePAM 0.5mg tablet PO SCH (07:19)
[2019-05-06] MEDS: ferrous gluconate 324mg tablet PO SCH ×2 (07:19→21:05)
[2019-05-06] MEDS: atorvastatin 10mg tablet PO SCH ×2 (07:20→21:03)
[2019-05-06] MEDS: gabapentin 300mg capsule PO SCH ×3 (07:22→21:05)
[2019-05-06] MEDS: metoprolol tartrate 12.5mg (1/2 tablet) PO SCH ×2 (07:22→21:05)
[2019-05-06] MEDS: sertraline 50mg tablet PO SCH (07:23)
[2019-05-06] MEDS: calcium carbonate/vitamin D3 tablet PO SCH ×2 (07:23→21:05)
[2019-05-06] MEDS: pantoprazole 40mg Tablet.DR PO SCH (07:23)
[2019-05-06] MEDS: allopurinol 100mg tablet PO SCH (07:23)
[2019-05-06] MEDS: enoxaparin 40mg/0.4ml syringe SQ SCH (07:24)
[2019-05-06] MEDS: nicotine 14mg patch - 24hr TD SCH (07:24)
[2019-05-06] MEDS: NYSTATIN CREAM - 30GM TUBE TP SCH ×2 (07:25→21:19)
[2019-05-06] MEDS: K and/or MAG REPLACEMENT MC SCH ×2 (08:00→20:00)
[2019-05-06 11:00] VITALS: BP 143/62
--- NOTE | 2019-05-06 12:59 | NUR ---
DM consult: pt A1c less than 7. Pt not on carb controlled diet, however glucose is WNL. LB 05/06. Will continue to monitor. Addendum: 05/06/19 at 1259 by Wing Taylor CARTER Amended: Links added. Addendum: 05/06/19 at [address] EMMA Approsamantha
--- NOTE | 2019-05-06 17:57 | NUR ---
Patient was very tearful stating that she is bored and lonely. Patient was asked if she would like to color for a little while. Patient stated that she would like that very much. Patient provided coloring pages and crayons. Patient was much happier after this.
--- NOTE | 2019-05-06 18:09 | NUR ---
Problems reprioritized. Patient report given, questions answered & plan of care reviewed with ALESIA Warren.
--- NOTE | 2019-05-06 18:46 | NUR ---
Patient in room [facility]DA 345. I have received report from ALESIA SILVERIO and had the opportunity to ask questions and assume patient care.
[2019-05-06 19:00] VITALS: BP 122/64
[2019-05-06] MEDS: clonazePAM 1mg tablet PO SCH (21:04)
--- NOTE | 2019-05-06 23:51 | NUR ---
Patient refused to allow the nurses aid to take her vitals for the midnight shift routine vitals.
[2019-05-07] MEDS: tobramycin/dexamethasone ophthalmic suspension RIGHTEYE SCH ×4 (02:00→20:00)
[2019-05-07] MEDS: normal saline 1000ml 1,000 ML IV SCH ×2 (04:46→15:45)
[2019-05-07 05:18] LABS: BASOPHILS % (AUTO) 0.3 % (0-1); EOSINOPHILS # (AUTO) 0.1 X10'3 (0-0.9); EOSINOPHILS % (AUTO) 1.5 % (0-6); HEMATOCRIT 26.3 % (35.0-45.0); HEMOGLOBIN 8.8 g/dl (12.0-16.0); LYMPHOCYTES # (AUTO) 0.6 X10'3 (1.1-4.8); LYMPHOCYTES % (AUTO) 16.6 % (21-51); MEAN CORPUSCULAR HGB CONC 33.6 g/dL (33.0-36.5); MEAN CORPUSCULAR VOLUME 89.3 FL (78-98); MEAN PLATELET VOLUME 7.4 FL (7.4-10.4); MONOCYTES # (AUTO) 0.3 X10'3 (0-0.9); MONOCYTES % (AUTO) 8.3 % (2-12); NEUTROPHILS # (AUTO) 2.7 X10'3 (1.8-7.7); NEUTROPHILS % (AUTO) 73.3 % (42-75); PLATELET COUNT 191 X10'3 (140-440); RED BLOOD COUNT 2.94 X10'6 (4.20-5.60); WHITE BLOOD COUNT 3.7 X10'3 (4.5-11.0)
[2019-05-07 05:27] LABS: ALBUMIN 1.7 G/DL (3.4-5.0); ANION GAP 7 (8-16); BLOOD UREA NITROGEN 5 MG/DL (7-18); BUN/CREATININE RATIO 6.6 (6.6-38.0); CALCIUM 8.1 MG/DL (8.5-10.1); CHLORIDE 110 MMOL/L (99-107); CREATININE 0.76 MG/DL (0.40-0.90); GLUCOSE 101 MG/DL (70-104); MAGNESIUM 1.4 MG/DL (1.5-2.4); SODIUM 139 MMOL/L (135-145); TOTAL CARBON DIOXIDE 21.7 MMOL/L (24-32); eGFR 80 ML/MIN
--- NOTE | 2019-05-07 06:08 | NUR ---
Problems reprioritized. Patient report given, questions answered & plan of care reviewed with Raymond Villarreal.
--- NOTE | 2019-05-07 06:10 | NUR ---
Patient in room [facility]DA 345. I have received report from ALESIA Warren and had the opportunity to ask questions and assume patient care.
[2019-05-07 07:52] VITALS: BP 126/56
[2019-05-07] MEDS: K and/or MAG REPLACEMENT MC SCH ×2 (08:00→20:00)
[2019-05-07] MEDS: enoxaparin 40mg/0.4ml syringe SQ SCH (08:00)
[2019-05-07] MEDS: nicotine 14mg patch - 24hr TD SCH (08:00)
[2019-05-07] MEDS: calcium carbonate/vitamin D3 tablet PO SCH ×2 (08:00→20:38)
[2019-05-07] MEDS: ferrous gluconate 324mg tablet PO SCH ×2 (08:00→20:42)
[2019-05-07] MEDS: allopurinol 100mg tablet PO SCH (08:00)
[2019-05-07] MEDS: ARIPIPRAZOLE 10 MG TABLET PO SCH ×3 (08:12→20:42)
[2019-05-07] MEDS: busPIRone 15mg tablet PO SCH ×2 (08:12→20:42)
[2019-05-07] MEDS: atorvastatin 10mg tablet PO SCH ×2 (08:14→20:42)
[2019-05-07] MEDS: ziprasidone 20mg capsule PO SCH ×3 (08:14→20:39)
[2019-05-07] MEDS: clonazePAM 0.5mg tablet PO SCH (08:14)
[2019-05-07] MEDS: gabapentin 300mg capsule PO SCH ×3 (08:15→20:39)
[2019-05-07] MEDS: metoprolol tartrate 12.5mg (1/2 tablet) PO SCH ×2 (08:15→20:41)
[2019-05-07] MEDS: pantoprazole 40mg Tablet.DR PO SCH (08:15)
[2019-05-07] MEDS: sertraline 50mg tablet PO SCH (08:15)
[2019-05-07] MEDS: NYSTATIN CREAM - 30GM TUBE TP SCH ×2 (08:16→20:44)
[2019-05-07] MEDS ORDERED: magnesium 4gm in 100ml NS 100 ML IV PRN (10:35)
[2019-05-07] MEDS ORDERED: potassium CL 10mEq/100ml bag 100 ML IV PRN (10:35)
[2019-05-07] MEDS ORDERED: potassium Cl 20 mEq SR tablet PO PRN ×2 (10:35)
[2019-05-07 11:00] VITALS: BP 141/65
[2019-05-07] MEDS: magnesium Cl slow-release 64mg tablet PO PRN (13:17)
--- NOTE | 2019-05-07 18:06 | NUR ---
Problems reprioritized. Patient report given, questions answered & plan of care reviewed with ALESIA Talbert.
--- NOTE | 2019-05-07 18:30 | NUR ---
Patient in room [facility] 345. I have received report from ALESIA Villarreal and had the opportunity to ask questions and assume patient care.
[2019-05-07 20:00] VITALS: BP 142/61
[2019-05-07] MEDS ORDERED: K and/or MAG REPLACEMENT MC SCH (20:00)
[2019-05-07 20:43] VITALS: BP 142/61
[2019-05-07] MEDS: clonazePAM 1mg tablet PO SCH (20:43)
[2019-05-08] VITALS (14 sets, daily range): BP systolic 110–163; BP diastolic 48–78
[2019-05-08] MEDS: magnesium Cl slow-release 64mg tablet PO PRN (00:59)
[2019-05-08] MEDS: tobramycin/dexamethasone ophthalmic suspension RIGHTEYE SCH ×4 (01:06→20:00)
[2019-05-08] MEDS: acetaminophen 325mg tablet PO PRN (04:16)
--- NOTE | 2019-05-08 06:02 | NUR ---
Problems reprioritized. Patient report given, questions answered & plan of care reviewed with ALESIA Villarreal.
[2019-05-08] MEDS ORDERED: normal saline 1000ml 1,000 ML IV ONE (06:05)
[2019-05-08 06:13] LABS: BASOPHILS % (AUTO) 0.3 % (0-1); EOSINOPHILS # (AUTO) 0.1 X10'3 (0-0.9); EOSINOPHILS % (AUTO) 2.6 % (0-6); HEMATOCRIT 26.8 % (35.0-45.0); LYMPHOCYTES # (AUTO) 0.6 X10'3 (1.1-4.8); LYMPHOCYTES % (AUTO) 16.3 % (21-51); MEAN CORPUSCULAR HEMOGLOBIN 30.1 PG (27.0-31.0); MEAN CORPUSCULAR HGB CONC 33.5 g/dL (33.0-36.5); MEAN CORPUSCULAR VOLUME 89.7 FL (78-98); MEAN PLATELET VOLUME 7.4 FL (7.4-10.4); MONOCYTES # (AUTO) 0.3 X10'3 (0-0.9); MONOCYTES % (AUTO) 6.9 % (2-12); NEUTROPHILS # (AUTO) 2.9 X10'3 (1.8-7.7); NEUTROPHILS % (AUTO) 73.9 % (42-75); PLATELET COUNT 187 X10'3 (140-440); RED BLOOD COUNT 2.99 X10'6 (4.20-5.60)
[2019-05-08 06:24] LABS: PARTIAL THROMBOPLASTIN TIME 31 SECONDS (22-32)
[2019-05-08 06:29] LABS: ALBUMIN 1.6 G/DL (3.4-5.0); ANION GAP 9 (8-16); BLOOD UREA NITROGEN 5 MG/DL (7-18); CALCIUM 8.1 MG/DL (8.5-10.1); CHLORIDE 109 MMOL/L (99-107); CREATININE 0.84 MG/DL (0.40-0.90); GLUCOSE 97 MG/DL (70-104); MAGNESIUM 1.5 MG/DL (1.5-2.4); POTASSIUM 3.8 MMOL/L (3.5-5.1); SODIUM 140 MMOL/L (135-145); TOTAL CARBON DIOXIDE 22.4 MMOL/L (24-32); eGFR 71 ML/MIN
[2019-05-08] MEDS: enoxaparin 40mg/0.4ml syringe SQ SCH (06:55)
[2019-05-08] MEDS: allopurinol 100mg tablet PO SCH (07:11)
[2019-05-08] MEDS: calcium carbonate/vitamin D3 tablet PO SCH ×2 (07:12→21:52)
[2019-05-08] MEDS: ferrous gluconate 324mg tablet PO SCH ×2 (07:13→21:54)
[2019-05-08] MEDS: K and/or MAG REPLACEMENT MC SCH ×2 (07:14→20:00)
[2019-05-08] MEDS: atorvastatin 10mg tablet PO SCH ×2 (08:00→21:52)
[2019-05-08] MEDS: busPIRone 15mg tablet PO SCH ×2 (08:14→21:53)
[2019-05-08] MEDS: pantoprazole 40mg Tablet.DR PO SCH (08:15)
[2019-05-08] MEDS: sertraline 50mg tablet PO SCH (08:15)
[2019-05-08] MEDS: ziprasidone 20mg capsule PO SCH ×3 (08:15→21:52)
[2019-05-08] MEDS: clonazePAM 0.5mg tablet PO SCH (08:16)
[2019-05-08] MEDS: gabapentin 300mg capsule PO SCH ×3 (08:16→21:54)
[2019-05-08] MEDS: metoprolol tartrate 12.5mg (1/2 tablet) PO SCH ×2 (08:17→22:09)
[2019-05-08] MEDS: ARIPIPRAZOLE 10 MG TABLET PO SCH ×3 (08:22→21:54)
[2019-05-08] MEDS: NYSTATIN CREAM - 30GM TUBE TP SCH ×2 (08:24→22:15)
--- NOTE | 2019-05-08 11:13 | NUR ---
Initial: Pt admit with acute renal fail with severe dehydration and suspecting continued colovesical or vaginal fistula and also suspecting colitis/enteritis. Pt NPO for possible surgical intervention. Pt previously on heart healthy diet initially with 0% PO intake however up to 75-100% x 2 meals prior to diet change to NPO. Per physical assessment pt resistive to care and confused at times. LBM 05/07. Will continue to follow closely and monitor need for nutrition intervention. Recommendations: 1) Advance to heart healthy diet as medically indicated 2) Monitor need for ONS with diet advancement 3) Bowel care PRN 4) Wt per rx Addendum: 05/08/19 at [address] Amended: Links added.
--- NOTE | 2019-05-08 11:28 | NUR ---
Patient was transferred from bed to a chair via another nurse. Patient was found to have recinos catheter pulled out. Patient denies pain. Dr. Waldrop aware. OR informed and stated that they would place another prior to surgery.
[2019-05-08] MEDS ORDERED: ringers solution, lacted 1,000 ML IV SCH (13:06)
[2019-05-08] MEDS ORDERED: ondansetron/PF 4mg/2ml inj IV PRN (13:10)
[2019-05-08] MEDS ORDERED: proCHLORperazine 10 MG/2 ml inj IV PRN (13:10)
[2019-05-08] MEDS ORDERED: morphine 2 MG/ML inj. syringe IV PRN (13:10)
[2019-05-08] MEDS ORDERED: HYDROmorphone inj. 0.5 MG/0.5 ML DISP.SYRIN IV PRN (13:10)
[2019-05-08] MEDS ORDERED: meperidine/PF 25mg/ml syringe IV PRN (13:10)
--- NOTE | 2019-05-08 13:33 | NUR ---
Patient off the unit to OR.
[2019-05-08] MEDS ORDERED: sevoflurane 250ml liquid IH ONE (14:15)
[2019-05-08] MEDS ORDERED: dexamethasone sod phosphate 10mg/ml inj ONE (14:15)
[2019-05-08] MEDS ORDERED: ondansetron/PF 4mg/2ml inj ONE (14:15)
[2019-05-08] MEDS ORDERED: midazolam 2 mg/2 ml injection ONE (14:25)
[2019-05-08] MEDS ORDERED: ceFOXitin 1000 MG inj ONE ×2 (14:34)
[2019-05-08] MEDS ORDERED: LIDOcaine 2% 5ml jelly ONE (14:34)
[2019-05-08] MEDS ORDERED: rocuronium 10mg/ml inj IV ONE (14:34)
[2019-05-08] MEDS ORDERED: propofol inj 20 ML IV ONE (14:34)
[2019-05-08] MEDS ORDERED: fentaNYL/PF 50MCG/1 ML 2ML syringe ONE (14:45)
[2019-05-08] MEDS ORDERED: neostigmine methylsulfate 1 MG/ML 10ml vial ONE ×2 (15:13→15:14)
[2019-05-08] MEDS ORDERED: glycopyrrolate 0.2mg/ml inj ONE ×2 (15:13→15:14)
--- NOTE | 2019-05-08 15:30 | NUR ---
Received from OR via BED , accompanied by Anesthesiologist DR CASE and report given by Anesthesiolgist. PATIENT WAKING UP, DENIES PAIN, V/S WNL, NEUROVASCULAR CHECKS INTACT, 20G PIV RUE, SCD ON, LARGE DRESSING CDI TO ABDOMEN. F/C DRAINING CLEAR YELLOW URINE.
--- NOTE | 2019-05-08 16:00 | NUR ---
PATIENT ALERT AND ORIENTED X4, DENIES PAIN, V/S WNL, NEUROVASCULAR CHECKS INTACT, 20G PIV RUE, SCD ON, LARGE DRESSING CDI TO ABDOMEN. F/C DRAINING CLEAR YELLOW URINE. PATIENT TAKEN TO WITH ALL BELONGINGS AND HOOKED UP TO MONITORS IN ROOM AND REPORT GIVEN TO RN WHO HAS TAKEN OVER PATIENT CARE
--- NOTE | 2019-05-08 18:00 | NUR ---
Patient in room [facility] 345. I have received report from Cherelle DUMAS and had the opportunity to ask questions and assume patient care.
--- NOTE | 2019-05-08 18:22 | NUR ---
Problems reprioritized. Patient report given, questions answered & plan of care reviewed with ALESIA Meyer.
[2019-05-08] MEDS: clonazePAM 1mg tablet PO SCH (21:53)
[2019-05-09] VITALS: BP 116/48
[2019-05-09] MEDS: tobramycin/dexamethasone ophthalmic suspension RIGHTEYE SCH ×4 (02:00→20:50)
[2019-05-09 04:00] VITALS: BP 113/63
--- NOTE | 2019-05-09 06:35 | NUR ---
Problems reprioritized. Patient report given, questions answered & plan of care reviewed with Joaquin RN.
--- NOTE | 2019-05-09 06:49 | NUR ---
Patient in room [facility] 345. I have received report from JOLYNN DUMAS and had the opportunity to ask questions and assume patient care.
[2019-05-09 07:14] VITALS: BP 134/59
[2019-05-09] MEDS: K and/or MAG REPLACEMENT MC SCH ×2 (08:00→20:00)
[2019-05-09] MEDS: enoxaparin 40mg/0.4ml syringe SQ SCH (08:00)
[2019-05-09] MEDS: ARIPIPRAZOLE 10 MG TABLET PO SCH ×3 (09:16→20:39)
[2019-05-09] MEDS: atorvastatin 10mg tablet PO SCH ×2 (09:17→20:43)
[2019-05-09] MEDS: ferrous gluconate 324mg tablet PO SCH ×2 (09:17→20:39)
[2019-05-09] MEDS: sertraline 50mg tablet PO SCH (09:18)
[2019-05-09] MEDS: clonazePAM 0.5mg tablet PO SCH (09:18)
[2019-05-09] MEDS: busPIRone 15mg tablet PO SCH ×2 (09:18→20:39)
[2019-05-09] MEDS: metoprolol tartrate 12.5mg (1/2 tablet) PO SCH ×2 (09:19→20:41)
[2019-05-09] MEDS: ziprasidone 20mg capsule PO SCH ×3 (09:20→20:42)
[2019-05-09] MEDS: allopurinol 100mg tablet PO SCH (09:20)
[2019-05-09] MEDS: gabapentin 300mg capsule PO SCH ×3 (09:20→20:41)
[2019-05-09] MEDS: pantoprazole 40mg Tablet.DR PO SCH (09:21)
[2019-05-09] MEDS: calcium carbonate/vitamin D3 tablet PO SCH ×2 (09:21→20:39)
[2019-05-09] MEDS: NYSTATIN CREAM - 30GM TUBE TP SCH ×2 (09:28→20:51)
[2019-05-09 11:30] VITALS: BP 126/60
--- NOTE | 2019-05-09 18:10 | NUR ---
Patient in room LINDA 345. I have received report from Joaquin DUMAS and had the opportunity to ask questions and assume patient care.
--- NOTE | 2019-05-09 18:51 | NUR ---
Problems reprioritized. Patient report given, questions answered & plan of care reviewed with Betsy DUMAS.
[2019-05-09 20:00] VITALS: BP 134/62
[2019-05-09] MEDS: clonazePAM 1mg tablet PO SCH (20:43)
[2019-05-10] VITALS: BP 119/55
[2019-05-10] MEDS: tobramycin/dexamethasone ophthalmic suspension RIGHTEYE SCH ×4 (04:27→22:51)
--- NOTE | 2019-05-10 06:00 | NUR ---
Patient in room LINDA 345. I have received report from night nurse and had the opportunity to ask questions and assume patient care.
--- NOTE | 2019-05-10 06:26 | NUR ---
Problems reprioritized. Patient report given, questions answered & plan of care reviewed with Joaquin RN.
--- NOTE | 2019-05-10 06:45 | NUR ---
Patient in room [facility] 345. I have received report from Betsy DUMAS and had the opportunity to ask questions and assume patient care.
[2019-05-10 08:00] VITALS: BP 111/60
[2019-05-10] MEDS: enoxaparin 40mg/0.4ml syringe SQ SCH (08:00)
[2019-05-10] MEDS: K and/or MAG REPLACEMENT MC SCH ×2 (08:00→20:00)
[2019-05-10] MEDS: atorvastatin 10mg tablet PO SCH ×2 (08:18→22:49)
[2019-05-10] MEDS: busPIRone 15mg tablet PO SCH ×2 (08:20→22:50)
[2019-05-10] MEDS: ARIPIPRAZOLE 10 MG TABLET PO SCH ×3 (08:20→22:50)
[2019-05-10] MEDS: ziprasidone 20mg capsule PO SCH ×3 (08:20→22:50)
[2019-05-10] MEDS: clonazePAM 0.5mg tablet PO SCH (08:20)
[2019-05-10] MEDS: ferrous gluconate 324mg tablet PO SCH ×2 (08:20→22:50)
[2019-05-10] MEDS: metoprolol tartrate 12.5mg (1/2 tablet) PO SCH ×2 (08:21→22:49)
[2019-05-10] MEDS: allopurinol 100mg tablet PO SCH (08:21)
[2019-05-10] MEDS: pantoprazole 40mg Tablet.DR PO SCH (08:22)
[2019-05-10] MEDS: sertraline 50mg tablet PO SCH (08:22)
[2019-05-10] MEDS: calcium carbonate/vitamin D3 tablet PO SCH ×2 (08:22→22:49)
[2019-05-10] MEDS: NYSTATIN CREAM - 30GM TUBE TP SCH ×2 (08:22→22:51)
[2019-05-10] MEDS: gabapentin 300mg capsule PO SCH ×3 (08:22→22:50)
[2019-05-10 11:00] VITALS: BP 133/59
--- NOTE | 2019-05-10 12:06 | NUR ---
Student documentation: I have reviewed interventions, assessments performed and documented by Iman ADAME [facility].
[2019-05-10 18:00] VITALS: BP 109/49
--- NOTE | 2019-05-10 18:44 | NUR ---
Problems reprioritized. Patient report given, questions answered & plan of care reviewed with Nikki Sawant RN.
[2019-05-10 22:50] VITALS: BP 109/59
[2019-05-10] MEDS: clonazePAM 1mg tablet PO SCH (22:51)
[2019-05-11] VITALS: BP 109/59
[2019-05-11] MEDS: tobramycin/dexamethasone ophthalmic suspension RIGHTEYE SCH ×3 (02:30→14:00)
--- NOTE | 2019-05-11 06:28 | NUR ---
Problems reprioritized. Patient report given, questions answered & plan of care reviewed with ALESIA Pardo.
[2019-05-11 07:30] VITALS: BP 103/50
[2019-05-11] MEDS: NYSTATIN CREAM - 30GM TUBE TP SCH (08:00)
[2019-05-11] MEDS: enoxaparin 40mg/0.4ml syringe SQ SCH (08:00)
[2019-05-11] MEDS: K and/or MAG REPLACEMENT MC SCH (08:00)
[2019-05-11] MEDS: calcium carbonate/vitamin D3 tablet PO SCH (08:12)
[2019-05-11] MEDS: ARIPIPRAZOLE 10 MG TABLET PO SCH ×2 (08:12→12:06)
[2019-05-11] MEDS: sertraline 50mg tablet PO SCH (08:12)
[2019-05-11] MEDS: allopurinol 100mg tablet PO SCH (08:12)
[2019-05-11] MEDS: busPIRone 15mg tablet PO SCH (08:13)
[2019-05-11] MEDS: pantoprazole 40mg Tablet.DR PO SCH (08:13)
[2019-05-11] MEDS: clonazePAM 0.5mg tablet PO SCH (08:13)
[2019-05-11] MEDS: ziprasidone 20mg capsule PO SCH (08:13)
[2019-05-11] MEDS: ferrous gluconate 324mg tablet PO SCH (08:14)
[2019-05-11] MEDS: atorvastatin 10mg tablet PO SCH (08:14)
[2019-05-11] MEDS: gabapentin 300mg capsule PO SCH ×2 (08:15→12:06)
[2019-05-11] MEDS: metoprolol tartrate 12.5mg (1/2 tablet) PO SCH (08:19)
--- NOTE | 2019-05-11 10:38 | NUR ---
PT aware to work with pt. before discharge per order.
[2019-05-11 11:00] VITALS: BP 111/57
--- NOTE | 2019-05-11 11:42 | NUR ---
Called to give report to Mao REYES at [facility]. AMY had the opportunity to ask questions. He is aware F/c has recently been removed. Contact information provided.
--- NOTE | 2019-05-11 12:29 | NUR ---
Reassessment: Pt s/p sigmoidoscopy and diverting loop colostomy on 05/08. Patient's diet has been advanced to regular and pt documented with fluctuating PO intake, overall 25-50% with 100% at breakfast this morning. Pt currently A/O x2, not appropriate for education. Written colostomy nutrition therapy education with list of fiber content in food and RD contact information placed in patient's chart. D/w RN recommendation for diet change to low fiber given patient's recent GI surgery. RN reports pt doesn't currently have her dentures in so she has difficulty chewing. RN has ordered mechanical soft grind all. Pt pending d/c. Will continue to follow closely. Recommendations: 1) Diet change to low fiber 2) Mechanical soft grind all given pt with difficulty chewing d/t being without dentures 3) Monitor need for ONS 4) Bowel care PRN 5) Wt per rx Addendum: 05/11/19 at [address] Amended: Links added.
--- NOTE | 2019-05-11 13:06 | NUR ---
Pt. voided after F/C removal.
--- NOTE | 2019-05-11 13:14 | NUR ---
[facility] called to cancel transfer r/t flu cases.
--- NOTE | 2019-05-11 15:50 | NUR ---
Pt. transferred to [place]. Left via [employer] [employer], no IV, tele removed. Belongings left with pt.
== END 2019-05-11 15:58 | DRG 329 ==
LOC: ER 16:08 → ED HOLD 22:03 → PCU 3S 05-04 03:30 → SUR 3N 05-05 22:06
PROVIDERS: ADMIT Hospitalist; ATTEND Internal Medicine
PROC: 30233N1 Transfusion of Nonautologous Red Blood Cells into Peripheral Vein, Percutaneous Approach (ICD-10-PCS; 2019-05-03)
PROC: BW241ZZ Computerized Tomography (CT Scan) of Chest and Abdomen using Low Osmolar Contrast (ICD-10-PCS; 2019-05-03)
PROC: 0DJD8ZZ Inspection of Lower Intestinal Tract, Via Natural or Artificial Opening Endoscopic (ICD-10-PCS; 2019-05-08)
PROC: 0D1E0Z4 Bypass Large Intestine to Cutaneous, Open Approach (ICD-10-PCS; principal; 2019-05-08 14:15)
DX: N82.3 Fistula of vagina to large intestine (principal); N17.0 Acute kidney failure with tubular necrosis; Q93.82 Williams syndrome; Q87.89 Other specified congenital malformation syndromes, not elsewhere classified; G45.8 Other transient cerebral ischemic attacks and related syndromes; E11.9 Type 2 diabetes mellitus without complications; E78.00 Pure hypercholesterolemia, unspecified; E83.42 Hypomagnesemia; E86.0 Dehydration; F20.9 Schizophrenia, unspecified; I10 Essential (primary) hypertension; R32 Unspecified urinary incontinence; F32.9 Major depressive disorder, single episode, unspecified; F41.9 Anxiety disorder, unspecified; K57.90 Diverticulosis of intestine, part unspecified, without perforation or abscess without bleeding; Z90.710 Acquired absence of both cervix and uterus; Z88.0 Allergy status to penicillin; Z79.899 Other long term (current) drug therapy; Z79.84 Long term (current) use of oral hypoglycemic drugs
CPT/HCPCS: 36415; 36430; 70450; 71045; 71275; 74174; 74176; 74181; 80048; 80053; 82140; 82948; 83605; 83690; 83735; 83880; 84145; 84484; 85025; 85610; 85730; 86885; 86900; 86901; 86920; 87040; 87081; 93005; 96360; 97110; 97116; 97161; 97530; 99291; A4421; A4618; A6253; A6402; A7000; G0378; J0694; J1100; J2175; J2250; J2405; J2704; J2710; J3010; J3475; J3490; J7030; J7120; P9016; Q9967

== ENCOUNTER 2023-03-03 07:22 | Emergency (ER) | payer MEDICARE, MEDICAID ==
[~2023-03-03] VITALS: Ht 152.4 cm; Wt 69.8 kg
[~2023-03-03 07:22] MED LIST changes: -CLON-514 PO; +CLON1TAB96 PO; +LISI10TA27 PO; -LISI10TA4 PO; -MYC15CR TOP; +NYST15CR36 TOP; +SERT-434 PO; -SERT100T10 PO
[2023-03-03 07:27] VITALS: BP 153/65; PULSE 99; TEMP 98.4; O2SAT 99
[2023-03-03 07:58] VITALS: RESP 16
== END 2023-03-03 08:30 | disposition home or self-care (01) ==
LOC: ER 07:23
DX: R51.9 Headache, unspecified (principal); E78.00 Pure hypercholesterolemia, unspecified; I10 Essential (primary) hypertension; F31.9 Bipolar disorder, unspecified; Z88.0 Allergy status to penicillin; Z79.899 Other long term (current) drug therapy
CPT/HCPCS: 99284

== ENCOUNTER 2023-05-04 00:33 | Emergency (ER) | payer MEDICARE, MEDICAID ==
[~2023-05-04] VITALS: Ht 160 cm; Wt 70.2 kg
[2023-05-04 00:36] VITALS: BP 162/51; PULSE 68; RESP 16; TEMP 97.7; O2SAT 99
[2023-05-04] MEDS: ibuprofen tablet 400 MG TABLET PO ONE (01:04)
[2023-05-04] MEDS: acetaminophen 325mg tablet PO ONE (01:04)
== END 2023-05-04 01:12 | disposition home or self-care (01) ==
LOC: ER 00:34
DX: M25.552 Pain in left hip (principal); Z88.0 Allergy status to penicillin; Z79.899 Other long term (current) drug therapy; Z79.2 Long term (current) use of antibiotics; W18.39XA Other fall on same level, initial encounter; Y93.89 Activity, other specified; Y92.89 Other specified places as the place of occurrence of the external cause; Y99.8 Other external cause status
CPT/HCPCS: 99283